=== PATIENT | male | born 1965 ===

== ENCOUNTER 2025-07-08 10:43 | Outpatient (AMB) | payer OTHER, SELFPAY ==
--- OUTSIDE RECORDS SUMMARY | 2024-02-26 05:30 | XMS_ITS ---
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 6 month F/U & blood work. * Medical History: Objective: * Vitals: Past Vitals:* 05/14/2023 BP:135/65mm Hg, HR:77/min, R R:16/min, Temp:96.7F, Oxygen sat %:98%, Wt:160lbs, Wt-k.57 kg, Ht: 65.7 in, Ht-cm: 166.88 cm, BMI:26.06Index, Body Surface Area: 1.83 Assessment: Plan: * Treatment: * Billing Information: * Visit Code: * Procedure Codes: Care Plan Details* * Electronic signature of Mag Cabrera MD, MD on 07/08/2025 at 12:27 PM EST Sign off status: Pending * Provider: Greg Cabrera MD Date: 0 02/26/2024 Generated for Brittany pierce/Jessica/Edwardo on: 1 09/08/2024 12:27 PM EST
--- NOTE | 2025-07-08 10:46 | A.OFFPC_ITS ---
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 Accompanied by: Self / Same As Patient Allergies No Known Allergies Allergy (Verified 07/08/25 10:51) Medication List - Last Reconciled 07/08/25 by Don Mendiola MD [blood pressure kit As directed] ciclopirox 8% 1 appl topical BEDTIME 4 weeks tamsulosin 0.4 mg PO BEDTIME Tobacco use date assessed: 07/08/25 Dental Screening Dental Screen Date: 07/08/25 Did you have a dental visit in the last 12 months?: No HPI HPI Comments History of Present Illness Details History of Present Illness The patient is a 60-year-old male presenting for his first visit in over two years for a general health evaluation and to address concerns including urinary problems, high blood pressure, and poor sleep. Benign Prostatic Hyperplasia: The patient reports urinary issues that began around age 40, including difficulty starting and stopping urination. He describes a sensation of glass coming out if he holds his urine, though he denies john burning, noting only some irritation. He also notes that it takes time to fully empty his bladder. Hypertension: The patient reports being told by a doctor from [email or web address] that his blood pressure was a little high, around 145/90 mmHg. 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 He attributes his current lifestyle, including stress, diet, and inactivity, as contributing factors. Obstructive Sleep Apnea, suspected: The patient describes his sleep as terrible, often falling asleep from exhaustion between 7:30 and 8:00 PM, only to wake up between 11:30 PM and 1:00 AM. He does not feel refreshed upon waking. His reports that he snores. He recalls episodes of waking up gasping for air in his 20s, but states this symptom has since resolved. Restless Legs Syndrome, suspected: The patient reports experiencing his body jerking, affecting his left leg primarily but sometimes also the right. These movements typically start at night and are not associated with pain. He was previously evaluated at a vein clinic, where he was told his veins were not the cause of this symptom. Erectile Dysfunction: The patient reports using Cialis for erectile dysfunction. He previously tried Viagra but discontinued it due to experiencing a stuffy nose. 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 He has been abstinent from all hard drugs since February 1998 and reports never having overdosed. History of Musculoskeletal Injuries: The patient has an extensive history of injuries, notably a left shoulder injury that required a five-hour surgery at [facility] in 2019. The surgery was for a rotator cuff tear (infraspinatus, supraspinatus) and a full-grade pectoral tear with separation from the humerus, which could not be completely repaired. Other i njuries include torn ankles, a right hand/thumb injury from age 23, and trigger finger since age 27. He also reports having snapped an accessory bone in his left foot. Surgical History: - Left shoulder surgery (2019) at [facility] fo r rotator cuff and pectoral muscle tear repair. Medications: - Cialis, as needed, for erectile dysfun ction. Social History: - Substance Use: The patient smokes david abis and expresses a desire to quit. - He denies smoking cigarettes. - He reports a remote history of intrave nous heroin use, with abstinence since February 1998. - He reports occasional alcohol use. 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 - Exercise: The patient was previously h ighly active with running, cycling, and strength training but has ceased this routine due to his caregiving responsibilities. - He has recently started working out [employer]. - Family Status: The patient is . Family History: Family history was not discussed during the encounter. Diagnostic Results: - Past Workup: A prior evaluation at [facility] for chest pressure was negative. - Past Workup: An evaluation at [facility] following a syncopal episode found no cardiac abnormalities. - Past Evaluation: An evaluation at a in clinic for leg symptoms concluded there was nothing wrong with his veins. - Past Labs (2022): Revealed Vitamin D d eficiency. Past Medical History - History of multiple musculoskeletal in juries including left shoulder rotator cuff and pectoral tear s/p surgery (2019), childhood hand injury, bilateral ankle tears, right hand/thumb injury, left foot accessory bone fracture, and trigger finger. - Opioid use disorder, in remission sin e 1997. - History of multiple head injuries. - History of syncope with negative cardi ac workup. - History of chest pressure with negativ e cardiac workup. - History of vitamin D deficiency. Health Maintenance - Comprehensive Labs: Ordered CBC, CMP, electrolytes, TSH, B12, folate, vitamin D, testosterone, Hep B/C, syphilis, and HIV. - Cancer Screening: Ordered Cologuard fo r colorectal cancer screening. - Follow-up: Schedule a follow-up visit in two weeks to review all results and adjust the plan. [facility] Medical History (Updated 07/08/25 @ 13:15 by Don Mendiola MD) Gynecomastia Opioid use disorder in remission Erectile disorder RLS (restless legs syndrome) KASHMIR (obstructive sleep apnea) Hypertension Dribbling urine Hesitancy of micturition Mycotic toenails Sleep apnea Sleep disturbance Concussion Rotator cuff injury Surgical History (Updated 07/08/25 @ 10:57 by Katharina Schreiber CMA) Termo teeth extracted H/O hand surgery Family History (Updated 07/08/25 @ 10:56 by Katharina Schreiber CMA) Mother Obese HTN (hypertension) Father Heart attack Brother Heart attack Social History (Updated 07/08/25 @ 10:59 by Katharina Schreiber CMA) Housing: Apartment Alcohol intake: current Comment: social Patient Tobacco Use Status: Former Tobacco user e-Cigarette/Vaping Use: Never Used Substance Use Type: Marijuana service: No Current occupational status: employed Cognitive needs: No Hearing needs: No Vision needs: Yes (glasses) Questionnaire PHQ-9 Over the last 2 weeks, how often have you been bothered by any of the following problems? 1. Little interest or pleasure in doing things: not at all 2. Feeling down, depressed, or hopeless: not at all 3. Trouble falling or staying asleep, or sleeping too much: nearly every day 4. Feeling tired or having little energy: nearly every day 5. Poor appetite or overeating: not at all 6. Feeling bad about yourself - or that you are a failure or have let yourself or your family down: not at all 7. Trouble concentrating on things, such as reading the newspaper or watching television: not at all 8. Moving or speaking so slowly that other people could have noticed. Or the opposite - being so fidgety or restless that you have been moving around a lot more than usual: not at all 9. Thoughts that you would be better off or of hurting yourself in some way: not at all Total score: 6 Source: Developed by Drs. Ubaldo Jo, Venice Campos, Roosevelt Pemberton and colleagues, with an educational raffi from [email or web address]. Thrive Questionnaire I am a: Patient What is your living situation today?: I have a steady place to live Within the past 12 months, did the food you bought not last and you didn't have the money to get more?: Never true Within the past 12 months, did you worry whether your food would run out before you got money to buy more?: Never true Do you have trouble paying for medicines?: No Do you have trouble getting transportation to medical appointments?: Yes Do you have trouble paying your heating and electricity bill?: No Do you have trouble taking care of your child, family member or friend?: No Are you currently unemployed and looking for a job?: No Are you interested in more education?: No Please select the resources that you would like help with: None Currently or been in a relationship where the following occur: No concerns reported THRIVE Score: 1 AUDIT C Alcohol Use Questionnaire (AUDIT-C) 1. How often do you have a drink containing alcohol?: 2-4 times a month 2. How many drinks containing alcohol do you have on a typical day when you are drinking?: 1 or 2 3. How often do you have six or more drinks on one occasion?: Never Total Score: 2 KENDELL-7 AMB Questionnaire KENDELL-7 Feeling nervous, anxious, or on edge: 0 = Not at all Not being able to stop or control worryin = Not at all Worrying too much about different things: 0 = Not at all Trouble relaxin = Not at all Being so restless that it is hard to sit still: 0 = Not at all Becoming easily annoyed or irritable: 0 = Not at all Feeling afraid as if something awful might happen: 0 = Not at all Total KENDELL-7 score (0-4 normal; 5-9 mild; 10-14 moderate; 15-21 severe): 0 Source: Developed by Drs. Ubaldo Jo, Venice Campos, Roosevelt Pemberton and colleagues, with an educational raffi from [email or web address]. Review of Systems Narrative Review of Systems - General: Reports exhaustion and feeling unrefreshed after sleep. - Cardiovascular: Denies chest pain; had a past episode of chest pressure that resolved. - Respiratory: Reports snoring and a past history of waking up gasping for air, which has since resolved. - Genitourinary: Reports dysuria, urinary hesitancy, and intermittency. - Endocrine: Reports new fat accumulation on his chest and erectile dysfunction. - Gastrointestinal: Reports constipation. - Musculoskeletal: Reports nocturnal jerking movements of his legs, primarily the left. - Neurological: Reports numbness and tingling in his right hand/thumb and a past syncopal episode. 10-point ROS reviewed and negative except as noted in HPI Physical exam (Primary Care) Vital Signs: Last Vital Signs Temp 97.9 F 07/08/25 10:49 Pulse 82 07/08/25 10:49 BP 146/93 H 07/08/25 10:49 Pulse Ox 97 07/08/25 10:49 Oxygen Delivery Method Room Air 07/08/25 10:49 BMI result Body Mass Index 25.5 Tobacco/Smoking Status: Tobacco use Status Tobacco use date assessed 07/08/25 07/08/25 10:53 Patient Tobacco Use Status Former Tobacco user 07/08/25 10:59 e-Cigarette/Vaping Use Never Used 07/08/25 10:59 PHQ-9: PHQ-9 Score PHQ-9: Total score 6 07/08/25 11:12 Currently or been in a relationship where the following occur: No concerns reported Narrative Physical Exam General: Well-appearing, in no acute distress. Vital signs: Blood pressure noted to be 145/90, indicating prehypertension. HEENT: Normocephalic, atraumatic. PERRLA, EOMI. Conjunctiva clear, sclera anicteric. Oropharynx clear, mucous membranes moist. TMs intact bilaterally. Neck: Supple, no lymphadenopathy, no thyromegaly, no JVD or carotid bruits. Cardiovascular: RRR, normal S1/S2, no murmurs, rubs, or gallops. Peripheral pulses 2+ and symmetric. No edema. Respiratory: Lungs clear to auscultation bilaterally, no wheezes, rales, or rhonchi. Normal effort. Abdomen: Soft, non-tender, non-distended. Normoactive bowel sounds. No hepatosplenomegaly, no masses. MSK: Full range of motion, no joint swelling or deformity. Normal gait. Noted history of left shoulder rotator cuff injury with residual separation. Skin: Warm, dry, intact. No rashes, lesions, or pallor. Noted thickened toenails suggestive of possible fungal infection. Neuro: Alert and oriented x3. Cranial nerves II-XII intact. Strength 5/5 throughout. Sensation intact. Reflexes 2+ symmetric. Normal coordination and gait. Reports restless leg syndrome symptoms. Psych: Appropriate mood and affect. Normal judgment and insight. Reports stress related to caregiving responsibilities. Office Procedures Flu Questionnaire Does the patient have a severe egg allergy?: No Does the patient have severe life threatening allergies?: No Does the patient have a fever or illness today?: No Has the patient ever had Guillain-Sherman Syndrome?: No Has the patient ever had any past reaction to a flu shot?: No Immunizations Fluarix [id number] (PF) 45 mcg (15 mcg x 3)/0.5 mL IM syringe Performing Provider: Don Mendiola MD [facility] Administered by: Katharina Schreiber CMA on 07/08/25 11:05 Dose Route Admin Location Dispensed Lot Number Expiration Date [facility] Acupuncturist 0.5 mL IM Right Deltoid 0.5 mL [id number] 01/17/26 [id number] [employer] VIS Given Date VIS Provided VIS Publication Date 07/08/25 Single Vaccine 24 Eligibility Eligibility Date Funding Source Not [facility] Eligible 07/08/25 Private Coding Level of Care Code New Pt Level 4 (27908) Add On Problem Visit Only Diagnoses Hesitancy of micturition R39.11 Dribbling urine N39.43 Sleep disturbance G47.9 Sleep apnea G47.30 Mycotic toenails B35.1 Hypertension I10 KASHMIR (obstructive sleep apnea) G47.33 RLS (restless legs syndrome) G25.81 Erectile disorder N52.9 Opioid use disorder in remission F11.91 Gynecomastia N62 Assessment & Plan Assessment & Plan (1) Hesitancy of micturition: Code(s): R39.11 - Hesitancy of micturition Category: Medical (2) Dribbling urine: Code(s): N39.43 - Post-void dribbling Category: Medical (3) Sleep disturbance: Code(s): G47.9 - Sleep disorder, unspecified Category: Medical (4) Sleep apnea: Code(s): G47.30 - Sleep apnea, unspecified Category: Medical (5) Mycotic toenails: Code(s): B35.1 - Tinea unguium Category: Medical (6) Hypertension: Code(s): I10 - Essential (primary) hypertension Category: Medical (7) KASHMIR (obstructive sleep apnea): Code(s): G47.33 - Obstructive sleep apnea (adult) (pediatric) Category: Medical (8) RLS (restless legs syndrome): Code(s): G25.81 - Restless legs syndrome Category: Medical (9) Erectile disorder: Code(s): N52.9 - Male erectile dysfunction, unspecified Category: Medical (10) Opioid use disorder in remission: Code(s): F11.91 - Opioid use, unspecified, in remission Category: Medical (11) Gynecomastia: Code(s): N62 - Hypertrophy of breast Category: Medical Plan Consent The patient verbally consented to the proposed plan, which includes laboratory testing, initiation of new medications, specialist referrals, and a home sleep study. The patient expressed understanding and agreement with the plan to proceed. Patient was informed and verbally consented to the use of an ambient scribe for clinic note documentation during this visit. Plan 1. Benign Prostatic Hyperplasia - Start tamsulosin daily to improve urinary flow. - Order PSA level as part of comprehensive labs. - Place referral to Urology for further evaluation and management. 2. Hypertension - Instructed patient to monitor and log blood pressure at home twice daily (morning and night) for review at follow-up. - Defer initiation of antihypertensive medication pending review of blood pressure log. 3. Suspected Obstructive Sleep Apnea - Order a home sleep study to evaluate for sleep-disordered breathing. 4. Onychomycosis - Prescribe a topical antifungal lacquer for toenails. - Place referral to Podiatry for further evaluation and management. 5. Gynecomastia / Suspected Low Testosterone - Order a serum testosterone level to investigate gynecomastia and other potential symptoms. Discussion Notes I had a detailed discussion with the patient about establishing primary care after a prolonged absence. We reviewed his multiple concerns, including urinary symptoms suggestive of BPH, elevated blood pressure, and poor sleep concerning for sleep apnea. I explained the plan to obtain comprehensive baseline labs, start tamsulosin for his urinary symptoms, order a home sleep study, and place referrals to Urology and Podiatry. I also instructed him on monitoring his blood pressure at home and completing a Cologuard test. The patient and his were included in the final discussion of the plan and both voiced understanding and agreement. A follow-up appointment was scheduled in two weeks to review all results and formulate the next steps in his care. Patient Instructions - Please go to the lab to have your blood drawn today; you do not need to fast. - Start taking the tamsulosin medication every night to help with your urination. - We will send a prescription for an antifungal nail italian to the pharmacy for your toenails. - Check your blood pressure at home once in the morning and once at night. - Please keep a written log and bring it to your next appointment. - We will order a Cologuard test kit to be sent to your home for colon cancer screening. - You will be contacted to schedule a sleep study that you can do at home. - Our office will send referrals for you to see a urologist (urinary specialist) and a data collection specialist (foot doctor). - Please return for a follow-up appointment in two weeks to discuss your test results. Medical Decision Making The patient is a 60-year-old male with a complex medical, surgical, and social history presenting to establish care after a two-year lapse. His primary complaints are urinary hesitancy, poor sleep, and concerns about elevated blood pressure. The patient's urinary symptoms are highly suggestive of benign prostatic hyperplasia (BPH); therefore, a trial of tamsulosin is warranted to provide symptomatic relief, along with a PSA check and urology referral for comprehensive evaluation. Regarding his blood pressure, home monitoring is the first step to confirm sustained hypertension before committing to pharmacotherapy, given the potential for white coat effect and variability. His report of poor, unrefreshing sleep, snoring, and a history of gasping for air is very concerning for obstructive sleep apnea (KASHMIR), which is a significant comorbidity. A home sleep study is the most appropriate next step for diagnosis. The development of gynecomastia and his report of ED warrant a testosterone level check. Comprehensive lab work is necessary to establish a baseline for all organ systems, screen for infectious diseases given his history, and assess for nutritional deficiencies. Physical exam findings of onychomycosis warrant treatment with a topical agent and referral to podiatry. Age-appropriate cancer screening with Cologuard is also indicated. The overall plan is to gather objective data, address acute symptoms, and establish a long-term care strategy in a stepwise fashion, with a close follow-up in two weeks to review all initial findings. Total Time Statement 30 min Total time spent caring for the patient today includes pre-visit chart review, documentation, review of laboratory and diagnostic imaging results, medication reconciliation, medically necessary evaluation, counseling on diagnoses, care coordination, ordering appropriate tests and medications, review of tests performed by other providers, reporting test results to the patient, and communication with other healthcare providers. Orders: Orders Influenza [id number] Immunization Today Z23 - Encounter for immunization Hepatitis B Surface Antigen Today Z13.9 - Encounter for screening, unspecified Syphilis Screen Today Z13.9 - Encounter for screening, unspecified Comprehensive Met. Panel Today Z13.9 - Encounter for screening, unspecified Hepatitis C Antibody Today Z13.9 - Encounter for screening, unspecified UA CC w/rflx Micro + Cult Today Z13.9 - Encounter for screening, unspecified Vitamin B12 and Folate Today Z13.9 - Encounter for screening, unspecified Hemoglobin A1c Today Z13.9 - Encounter for screening, unspecified Magnesium Today Z13.9 - Encounter for screening, unspecified Hepatitis B Surface Antibody Today Z13.9 - Encounter for screening, unspecified RT home sleep study Today G47.30 - Sleep apnea, unspecified, G47.9 - Sleep disorder, unspecified Testosterone, Total Today Z13.9 - Encounter for screening, unspecified Complete Blood Count Auto Diff Today Z13.9 - Encounter for screening, unspecified TSH reflex Free T4 Today Z13.9 - Encounter for screening, unspecified HIV Ab/Ag Today Z13.9 - Encounter for screening, unspecified Lipid Panel Today Z13.9 - Encounter for screening, unspecified Vitamin D 25-OH (D2 and D3) Today Z13.9 - Encounter for screening, unspecified Microalbumin, Random (w Creat) Today Z13.9 - Encounter for screening, unspecified PSA, Ultra Sensitive Today Z13.9 - Encounter for screening, unspecified Referrals Cologuard Test Z12.11 - Encounter for screening for malignant neoplasm of colon, Z12.12 - Encounter for screening for malignant neoplasm of rectum Podiatry Referral B35.1 - Tinea unguium Medications: New [blood pressure kit] As directed 1 ea 0RF I10 - Essential (primary) hypertension ciclopirox 8% 1 appl topical BEDTIME 6.6 mL 0RF 4 weeks tamsulosin 0.4 mg PO BEDTIME 30 caps 0RF
[2025-07-08 10:49] VITALS: BP 146/93; PULSE 82; TEMP 36.6; O2SAT 97; BMI 25.5
--- OUTSIDE RECORDS SUMMARY | 2025-07-08 12:27 | XMS_ITS | Patient Health Record ---
Author Organization [facility] [employer] Address [address] [place] [address] Care Team Providers Care Chief Chemist Name Role Phone Rick BYERS, [facility] Allergies No Known Allergies Reason For Referral No Information Social History Tobacco Use: Social History Observation Description Date Details (start date - stop date) Never Smoker NA - NA Tobacco Use/Smoking Question Answer Notes Tobacco use: nonsmoker Problems Problem Type SNOMED Code ICD Code Onset Dates Problem Status W/U Status Risk Notes Problem Type II diabetes mellitus without complication (674934148) Type 2 diabetes mellitus without complications (E11.9) Active confirmed Problem Tobacco user (230681052) Nicotine dependence, unspecified, uncomplicated (F17.200) Active confirmed Problem Gastroduodenitis (788711345) Gastritis, unspecified, without bleeding (K29.70) Active confirmed Problem Essential hypertension (22128226) Essential hypertension (I10) Active confirmed Problem Osteoarthritis (642608839) Osteoarthritis, unspecified osteoarthritis type, unspecified site (M19.90) Active confirmed Problem Vitamin D deficiency (06734228) Vitamin D deficiency (E55.9) Active confirmed Problem Hyperlipidemia (74798301) Mild hyperlipidemia (E78.5) Active confirmed Plan Of Treatment Pending Test Test Name Order Date ELECTROCARDIOGRAM, COMPLETE 05/14/2023 Urinalysis, [id number] 05/14/2023 Urine Culture, [id number] 05/14/2023 Insurance Providers Payer Name Payer Address Payer Phone Subscriber Number Group Number Insured Name Patient Relationship to Insured Coverage Start Date Coverage End Date [employer] [place] [employer] [address] [place] [phone] [id number] Ian Disla Self - patient is the insured Medical (General) History Medical History History ICD Code extra tarsal of left foot Surgical History Surgery Date(Month/Year) shoulder surgery 2018 Hospitalization History Reason Date(Month/Year) same as above
== END 2025-07-08 11:36 | disposition home or self-care (01) ==
PROVIDERS: Visit Provider Student in an Organized Health Care Education/Training Program
DX: R39.11 Hesitancy of micturition (principal); N39.43 Post-void dribbling; G47.9 Sleep disorder, unspecified; G47.30 Sleep apnea, unspecified; B35.1 Tinea unguium; I10 Essential (primary) hypertension; G47.33 Obstructive sleep apnea (adult) (pediatric); G25.81 Restless legs syndrome; N52.9 Male erectile dysfunction, unspecified; F11.91 Opioid use, unspecified, in remission; N62 Hypertrophy of breast; Z23 Encounter for immunization

== ENCOUNTER 2025-07-08 10:43 | Outpatient (REF) | payer OTHER, SELFPAY ==
[2025-07-08 14:56] LABS: MANUAL DIFF FLAG NO
[2025-07-08 15:12] LABS: Hematocrit 45.2 % (42.0-52.0); Hemoglobin 14.9 g/dl (14.0-18.0); Imm Gran Abs Auto 0.02 X10*3/uL (0.00-0.03); Imm Gran Pct Auto 0.3 % (0.0-0.4); Lymphocytes Absolute Auto 2.8 X10*3/uL (1.2-4.9); Mean Corpuscular HGB Conc 33.0 g/dl (31.0-36.0); Mean Corpuscular Hemoglobin 31.6 pg (27.0-33.0); Mean Corpuscular Volume 96.0 fL (80.0-98.0); NRBC Abs Auto 0.000 X10*3/uL (0.0-0.012); NRBC Pct Auto 0.0 /100WBC (0.0-0.2); Platelet Count 307 X10*3/uL (160-400); Red Blood Count 4.71 X10*6/uL (4.60-5.80); White Blood Count 7.6 X10*3/uL (4.8-10.8)
[2025-07-08 15:13] LABS: Appearance Urine Clear; Glucose Urine UA Negative (Negative); PH 6.0 (5.0-9.0); Specific Gravity - Urine >= 1.030 (1.005-1.025); UMIC TRIGGER UACC YES
[2025-07-08 15:20] LABS: UACC Culture Trigger YES
[2025-07-08 15:52] LABS: Alanine Aminotransferase 20 U/L (0-40); Albumin Level 4.6 g/dL (3.5-5.0); Alkaline Phosphatase 96 U/L (39-117); Anion Gap 10 (12-20); Aspartate Amino Transferase 26 U/L (5-37); Blood Urea Nitrogen 17 mg/dL (9-16); Calcium 9.5 mg/dL (8.4-10.2); Carbon Dioxide 25 mmol/L (22-29); Chloride 109 mmol/L (96-108); Cholesterol 171 mg/dL (<200); Estimated Glomerular Filt Rate > 60; HDL Cholesterol 41 mg/dL (>40); Magnesium 2.1 mg/dL (1.6-2.6); Potassium 4.3 mmol/L (3.3-5.1); Sodium 140 mmol/L (135-145); Total Protein 7.4 g/dL (6.5-8.0); Triglycerides 83 mg/dL (<150)
[2025-07-08 16:03] LABS: Folate 4.3 ng/mL (> or = 4.0); Vitamin B12 293 pg/mL (200-900)
[2025-07-08 16:37] LABS: Microalbum/Creatinine Ratio Ur 16.3 ug/mg cr (<30)
[2025-07-08 16:38] LABS: Free T4 (Free Thyroxine) 1.04 ng/dL (0.71-1.85)
[2025-07-11 03:57] LABS: Syphilis Screen Nonreactive (Nonreactive)
[2025-07-11 04:24] LABS: HBS Num1 0.00 mIU/mL (0-7.99); HBsAGNum1 0.55 S/CO (0.00-0.99); HIV Num 1 0.06 S/CO (0.00-0.99); Hepatitis B Surface Antigen Negative (Negative); ~HepC Num1 0.10 S/CO (0.00-0.79); ~Hepatitis B Surface Antibody NONREACTIVE (Nonreactive); ~Hepatitis C Antibody Nonreactive (Nonreactive)
[2025-07-14 14:48] LABS: PSA, Ultra Sensitive 3.12 ng/mL
[2025-07-16 06:24] LABS: Vitamin D 25-OH, D2 6 ng/mL; Vitamin D 25-OH, D3 13 ng/mL; Vitamin D 25-OH, Total 19 ng/mL (30-100)
== END 2025-07-08 10:44 | disposition home or self-care (01) ==
LOC: HO.HKASLDS 10:43
PROVIDERS: PCP Student in an Organized Health Care Education/Training Program; Visit Provider Student in an Organized Health Care Education/Training Program
DX: I10 Essential (primary) hypertension (principal); N40.0 Benign prostatic hyperplasia without lower urinary tract symptoms; N52.9 Male erectile dysfunction, unspecified; F11.21 Opioid dependence, in remission; R39.11 Hesitancy of micturition; N39.43 Post-void dribbling; B35.1 Tinea unguium; G47.33 Obstructive sleep apnea (adult) (pediatric); G25.81 Restless legs syndrome; N62 Hypertrophy of breast; Z23 Encounter for immunization; Z13.1 Encounter for screening for diabetes mellitus; Z12.5 Encounter for screening for malignant neoplasm of prostate
CPT/HCPCS: 36415; 80053; 80061; 81001; 82043; 82306; 82570; 82607; 82746; 83036; 83735; 84153; 84403; 84439; 84443; 85025; 86706; 86780; 86803; 87086; 87088; 87186; 87340; 87389; 90471; 90656; 96127